=== PATIENT | male | born 1975 | race Two or more races ===

== ENCOUNTER 2019-06-13 08:58 | Day surgery (SDC) | payer OTHER | END 2019-06-13 13:20 | disposition home or self-care (01) | LOC: AMB-ENDOS 08:58 | DX: D12.0 Benign neoplasm of cecum (principal); K57.30 Diverticulosis of large intestine without perforation or abscess without bleeding ==

== ENCOUNTER 2020-12-19 05:45 | Day surgery (SDC) | payer OTHER ==
[2020-12-19] MEDS ORDERED: PERCOCET 5-3251 EACH PO (08:48)
[2020-12-19] MEDS ORDERED: RECTICARE30 GM TOP (08:49)
== END 2020-12-19 17:25 | disposition home or self-care (01) ==
LOC: CIR.AMB 05:45
PROVIDERS: ATTEND Surgery
DX: D12.9 Benign neoplasm of anus and anal canal (principal); Z20.822 Contact with and (suspected) exposure to COVID-19; K64.4 Residual hemorrhoidal skin tags